=== PATIENT | male | born 1960 | race Caucasian/White ===

== ENCOUNTER 2016-08-02 10:01 | Outpatient (RCR) | payer OTHER ==
[~2016-08-02] VITALS: Ht 167.6 cm; Wt 68.0 kg
[2016-08-02 10:10] VITALS: BP 118/72
--- NOTE | 2016-08-02 10:53 | NUR ---
PHLEBOTOMY COMPLETED & PT GIVEN PROTEIN BAR W/CUP OF ICE WATER. PT REFUSES TO EAT OR DRINK IN DEPT STATING HE FEELS GREAT & WILL EAT IT IN AWHILE. STATES HE HAD A BIG GLASS OF TEA THIS AM & DOESN'T WANT TO GO TO THE BATHROOM WHILE HERE. CL
== END 2016-10-31 | disposition home or self-care (01) ==
PROVIDERS: ATTEND Family Medicine
DX: E83.110 Hereditary hemochromatosis (principal)
CPT/HCPCS: 36000; 99195

== ENCOUNTER → 2016-10-20 | Outpatient (REF) | payer OTHER ==
[2016-10-21 14:03] LABS: IRON 173 ug/dL (65-175)
== END ==
LOC: LAB 16:47
PROVIDERS: ATTEND Family Medicine
DX: E83.110 Hereditary hemochromatosis (principal)
CPT/HCPCS: 82728; 83540; 83550